=== PATIENT | male | born 1955 | race Caucasian/White ===

== ENCOUNTER 2018-01-06 21:36 | Emergency (ER) | payer OTHER ==
[~2018-01-06] VITALS: Ht 188 cm; Wt 93.4 kg
[2018-01-06] MEDS ORDERED: CLEOCIN HCL150 MG PO (21:59)
[2018-01-06] MEDS ORDERED: AMLODIPINE BESYL5 MG PO (21:59)
[2018-01-06] MEDS ORDERED: ULTRAM50 MG PO ×2 (21:59→22:38)
[2018-01-06] MEDS ORDERED: IRBESARTAN150 MG PO (22:00)
[2018-01-06] MEDS ORDERED: KETOROLAC TROMETHAMINE 60 MG/2 ML VIAL IM ONE (22:30)
[2018-01-06] MEDS ORDERED: CEFTRIAXONE SOD 1 GM VIAL IM ONE (22:30)
[2018-01-06] MEDS ORDERED: AUGMENTIN 875-1 EACH PO (22:38)
[2018-01-06] MEDS ORDERED: TYLENOL WITH C1 EACH PO (22:38)
[2018-01-06 22:39] VITALS: BP 127/84
== END 2018-01-06 22:49 | disposition home or self-care (01) ==
LOC: FSED 21:36
DX: K02.9 Dental caries, unspecified (principal); R51 Headache
CPT/HCPCS: 99282; J0696